=== PATIENT | female | born 1955 | race Caucasian/White ===

== ENCOUNTER 2025-08-30 12:30 | Emergency (ER) | payer MEDICARE, OTHER, SELFPAY ==
[2025-08-30 12:32] VITALS: BP 165/78
[2025-08-30 13:35] VITALS: BMI 31.8
--- NOTE | 2025-08-30 13:45 | ED.GENMED ---
History of Present Illness
<Nestor Buckley Jr., PA-C - Last Filed: 08/31/25 10:58>
General
Chief Complaint: Abnormal Lab Value
Source: patient and family
Exam Limitations: none
Time Seen by Provider: 08/30/25 12:41
Nursing documentation reviewed up to this point in time: agreed with
History of Present Illness
History of Present Illness:
70-year-old female past with blood from hypertension hyperlipidemia presenting to the emergency department after being sent in by the corporate counsel with concerns of a right sided abnormality of the right sided ultrasound of the carotid. Concern for
potential dissection. She denies any current symptoms. The initial carotid ultrasound was ordered due to her having some intermittent lightheadedness in the past.
Review of Systems
<UCHE Brooke Jr. Last Filed: 08/31/25 10:58>
Review of Systems
Allergies reviewed?: Yes
All Other Systems: ROS reviewed and negative except as documented in HPI and ROS
Phy Exam
<UCHE Brooke Jr. Last Filed: 08/31/25 10:58>
Physical Exam
Physical Exam:
GENERAL: Alert , in no apparent distress
EYE: pupils equal and reactive
NECK: Supple, no significant adenopathy.
ENT: o/p clr, mmm.
CARDIAC: Regular rate and rhythm .
LUNGS: Clear breath sounds bilaterally, no acute respiratory distress, no wheezes/rales/rhonchi
ABDOMEN: Soft, without focal tenderness, no r/g, no cvat
NEUROLOGICAL: Alert and oriented, no focal neuro deficits
SKIN: Warm and dry, skin intact.
MUSCULOSKELETAL: No edema, well perfused.
PSYCH: Normal and appropriate interaction.
Course
<UCHE Brooke Jr. Last Filed: 08/31/25 10:58>
Orders/Labs/Results
Orders:
Orders
08/30/25 13:32
CBC/With Diff [Complete Blood Count/With Diff] Urgent
CMP [Comprehensive Metabolic Panel] Urgent
08/30/25 13:56
CT Head & Neck Angio W/wo IV Urgent
Comment:
Reason For Exam: abnormal carotid US at [facility] [place], concern for R dis
08/30/25 14:27
Diphenhydramine [Benadryl] 25 mg IV NOW STA
Abnormal Lab Results
08/30/25
13:32
Absolute Lymphs (auto) 1.1 L 10^3/uL
(1.2-3.4)
Lymphocytes % 18.9 L %
(20.5-51.1)
Creatinine 0.5 L mg/dL
(0.6-1.0)
Glucose 122 H mg/dl
(70-99)
ALT 39 H U/L
(0-35)
08/30/25 13:32
08/30/25 13:32
Vital Signs
Initial and Last Documented VS:
Initial Vital Signs
Temp Pulse Resp BP Pulse Ox
98 F 82 20 165/78 100
08/30/25 12:32 08/30/25 12:32 08/30/25 12:32 08/30/25 12:32 08/30/25 12:32
Last Documented Vital Signs
Temp Pulse Resp BP Pulse Ox
98 F 78 16 138/68 98
08/30/25 12:32 08/30/25 14:48 08/30/25 16:00 08/30/25 14:36 08/30/25 13:46
Shenalt;Maritza Welch DRAMATIC DIRECTOR - Last Filed: 08/30/25 22:24>
Orders/Labs/Results
Orders:
Orders
08/30/25 13:32
CBC/With Diff [Complete Blood Count/With Diff] Urgent
CMP [Comprehensive Metabolic Panel] Urgent
08/30/25 13:56
CT Head & Neck Angio W/wo IV Urgent
Comment:
Reason For Exam: abnormal carotid US at [facility] [place], concern for R dis
08/30/25 14:27
Diphenhydramine [Benadryl] 25 mg IV NOW STA
Abnormal Lab Results
08/30/25
13:32
Absolute Lymphs (auto) 1.1 L 10^3/uL
(1.2-3.4)
Lymphocytes % 18.9 L %
(20.5-51.1)
Creatinine 0.5 L mg/dL
(0.6-1.0)
Glucose 122 H mg/dl
(70-99)
ALT 39 H U/L
(0-35)
08/30/25 13:32
08/30/25 13:32
Vital Signs
Initial and Last Documented VS:
Initial Vital Signs
Temp Pulse Resp BP Pulse Ox
98 F 82 20 165/78 100
08/30/25 12:32 08/30/25 12:32 08/30/25 12:32 08/30/25 12:32 08/30/25 12:32
Last Documented Vital Signs
Temp Pulse Resp BP Pulse Ox
98 F 78 16 138/68 98
08/30/25 12:32 08/30/25 14:48 08/30/25 16:00 08/30/25 14:36 08/30/25 13:46
<Nestor Buckley Jr., PA-C - Last Filed: 08/31/25 10:58>
MDM/Problems Addressed
MDM/Problems Addressed:
70-year-old female presenting to the emergency department today with concerns of an abnormal carotid ultrasound as an outpatient showing concern for potential dissection. She denies any current symptoms. She initially got the test due to having
some intermittent lightheadedness and dizziness. Denies any currently. Vital signs on arrival show elevated blood pressure but otherwise normal vital signs.
<Maritza Welch NP - Last Filed: 08/30/25 22:24>
MDM/Problems Addressed
MDM/Problems Addressed:
70-year-old female presenting to the emergency department today with concerns of an abnormal carotid ultrasound as an outpatient showing concern for potential dissection. She denies any current symptoms. She initially got the test due to having
some intermittent lightheadedness and dizziness. Denies any currently. Vital signs on arrival show elevated blood pressure but otherwise normal vital signs.
CTA head an neck radiology report reviewed with Dr. Wagoner: nothing acute, pt OK for discharge
Has appointment with her corporate counsel in 6 days. Copy of report given to her. Reviewed and all questions answered.
She is very relieved and comfortable going home. Daughter with her
<Nestor Buckley Jr., PA-C - Last Filed: 08/31/25 10:58>
*Pulse Oximetry
SaO2: 98
Oxygen Mode of Delivery: Room air
<Maritza Welch DRAMATIC DIRECTOR - Last Filed: 08/30/25 22:24>
*Pulse Oximetry
Patient hypoxic: no
*Critical Care Note
Total Time (30-74mins, 75-104mins- exclusive of procedures): Not Applicable
ED Attending Note
<Nestor Buckley Jr., PA-C - Last Filed: 08/31/25 10:58>
-
Portions of this chart may have been created with voice recognition software.� Occasional wrong word or��sound alike� substitutions may have occurred due to the inherent limitations of voice recognition software.
Discharge Plan
Departure
Patient Disposition: Home (Routine Discharge)
Date of Disposition: 08/30/25
Time of Disposition: 16:25
Patient with high blood pressure during this ER visit?: No
Condition: Good
Discharge Problem:
intermittent dizziness
Instructions: Dizziness in adults - ED (DC)
Referrals:
Your, [facility] [Other] - Keep scheduled appt
Estela Subramanian MD [Family Provider, Family Practice]
Activity Restrictions/Additional Instructions:
As we discussed, nothing worrisome and your CAT scan
Please take a copy to your corporate counsel when you see him next Friday
Interventions
Interventions:
*General Assessment Last Done: 08/30/25 12:32
*Neglect/Abuse Screening Last Done: 08/30/25 12:32
[facility] Risk Assessment Tool Last Done: 08/30/25 14:28
*Nursing Disposition Last Done: 08/30/25 16:28
Discharge Date and Time
Discharge Date/Time: 08/30/25 16:30
Print Language: MONTENEGRIN
[2025-08-30 13:48] LABS: Hematocrit 37.5 % (37.0-47.0); Hemoglobin 12.8 g/dL (12.0-16.0); Mean Corp Hgb Conc. 34.1 g/dL (33.0-37.0); Mean Corpuscular Volume 85.4 fL (81.0-99.0); Nucleated Red Blood Cells % 0 %; Platelet Count 147 10^3/uL (130-400); Red Cell Dist. Width 13.5 % (11.5-14.5)
[2025-08-30 14:03] LABS: ALT (SGPT) 39 U/L (0-35); AST (SGOT) 27 U/L (14-36); Albumin 4.3 g/dl (3.5-5.0); Alkaline Phosphatase 51 U/L (38-126); Blood Urea Nitrogen 12 mg/dl (7-17); Calcium 9.0 mg/dl (8.4-10.2); Carbon Dioxide 27 mmol/L (22-30); Chloride 105 mmol/L (98-107); Estimated Creatinine Clearance 93 ml/min; Glucose 122 mg/dl (70-99); Potassium 4.1 mmol/L (3.5-5.1); Sodium 137 mmol/L (135-145); Total Protein 7.4 g/dl (6.3-8.2); eGFR > 60.00
[2025-08-30 14:36] VITALS: BP 138/68
[2025-08-30] MEDS: BENADRYL 25 MG IV (14:38)
== END 2025-08-30 16:30 | disposition home or self-care (01) ==
LOC: EMR 12:30
PROVIDERS: Physician Assistant; EMERGENCY PHYSICIAN Emergency Medicine; FAMILY PHYSICIAN Family Medicine
DX: R42 Dizziness and giddiness (principal); I10 Essential (primary) hypertension; E78.5 Hyperlipidemia, unspecified
CPT/HCPCS: 99284; 96374; 70496; 70498; 80053; 85025; Q9967